=== PATIENT | female | born 1960 | race Caucasian/White ===

== ENCOUNTER 2022-05-02 06:19 | Emergency (ER) | payer BC ==
[~2022-05-02] VITALS: Ht 165.1 cm; Wt 97.0 kg
[2022-05-02] MEDS ORDERED: ELIQUIS2.5 MG PO (06:48)
[2022-05-02] MEDS ORDERED: QVAR REDIHALE10.6 G1 IH (06:49)
[2022-05-02] MEDS ORDERED: SPIRIVA18 MCG INH (06:49)
[2022-05-02] MEDS ORDERED: LIPITOR20 MG PO (06:50)
[2022-05-02] MEDS ORDERED: PREDNISONE20 MG PO (09:23)
[2022-05-02] MEDS ORDERED: VENTOLIN HFA18 GM INH (09:23)
[2022-05-02] MEDS ORDERED: ELIQUIS5 MG PO (09:23)
== END 2022-05-02 10:22 | disposition home or self-care (01) ==
LOC: ED 06:19
DX: M79.89 Other specified soft tissue disorders (principal); R50.9 Fever, unspecified
CPT/HCPCS: 36415; 71045; 80053; 85025; 85379; 87502; 93971; 96374; 99284-25; U0003